=== PATIENT | male | born 1980 | race African-American/Black ===

== ENCOUNTER 2018-10-25 18:10 | Emergency (ER) | payer SELFPAY ==
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
== END 2018-10-25 20:59 | disposition home or self-care (01) ==
LOC: ER 18:10
DX: S13.4XXA Sprain of ligaments of cervical spine, initial encounter (principal); V49.40XA Driver injured in collision with unspecified motor vehicles in traffic accident, initial encounter
CPT/HCPCS: 70450; 72125